=== PATIENT | female | born 1955 | race Caucasian/White ===

== ENCOUNTER → 2018-05-23 | Outpatient (CLI) | payer BC ==
--- NOTE | 2018-05-23 10:53 | RADIOLOGY REPORT (SQ) ---
EXAM DESCRIPTION: CT RT LOWER EXTREMITY WITHOUT COMPLETED DATE/TIME: 05/23/2018 9:46 am REASON FOR STUDY: UNSPECIFIED SPRAIN OF RIGHT FOOT S93.601A UNSPECIFIED SPRAIN OF RIGHT FOOT, INITI AL ENCOUNTER COMPARISON: None. TECHNIQUE: Axial imaging performed through the right foot with reformatted coronal and sagittal imag ing windowed for bone and soft tissues. Images saved to PACS. 3D IMAGING: Were 3D images as MIP, SSD, or volume rendering performed at the work station? Yes. All CT scanners at this facility use dose modulation, iterative reconstruction, and/or weight based d osing when appropriate to reduce radiation dose to as low as reasonably achievable (ALARA). [facility]: Dose Right [facility]: CareDose [facility]: Dose Right [facility]: Teradose 4D [facility]: [employer] LIMITATIONS: None. RADIATION DOSE: CT Rad equipment meets quality standard of care and radiation dose reduction techniq ues were employed. CTDIvol: 4.6 mGy. DLP: 103 mGy-cm. mGy. FINDINGS: SOFT TISSUES: No foreign body. BONES: Nondisplaced oblique fracture base of 4th metatarsal. Nondisplaced fracture lateral margin of medial, middle and lateral cuneiform. Comminuted, minimally displaced fracture base of 2nd metatars al. Nondisplaced fracture medial plantar margin proximal 1st metatarsal. MINERALIZATION: Osteopenia. OTHER: Lisfranc joints are intact. IMPRESSION: Fractures of the cuneiforms, proximal 1st, 2nd and 4th metatarsals. TECHNICAL DOCUMENTATION: JOB ID: [id number] Quality ID # [id number]: Final reports with documentation of one or more dose reduction techniques (e.g., Au tomated exposure control, adjustment of the mA and/or kV according to patient size, use of iterative reconstruction technique) 2010 [employer]- All Rights Reserved Reading location - IP/workstation name: [email or web address]
== END ==
LOC: RAD 09:04
PROVIDERS: ATTEND Orthopaedic Surgery Sports Medicine
DX: S92.344A Nondisplaced fracture of fourth metatarsal bone, right foot, initial encounter for closed fracture (principal); X58.XXXA Exposure to other specified factors, initial encounter